=== PATIENT | female | born 1995 | race Caucasian/White ===

== ENCOUNTER 2018-04-10 11:20 | Emergency (ER) | payer MEDICAID ==
[~2018-04-10] VITALS: Ht 162.6 cm; Wt 59.0 kg
[2018-04-10 11:29] VITALS: Ht 162.6 cm; Wt 59.0 kg
[2018-04-10] MEDS ORDERED: NAPROSYN500 MG PO (11:46)
[2018-04-10 12:07] VITALS: BP 122/068
== END 2018-04-10 12:09 | disposition home or self-care (01) ==
LOC: D.ER 11:20
DX: S63.502A Unspecified sprain of left wrist, initial encounter (principal); X58.XXXA Exposure to other specified factors, initial encounter; Y93.9 Activity, unspecified; Y92.9 Unspecified place or not applicable